=== PATIENT | male | born 1970 | race Caucasian/White ===

== ENCOUNTER 2017-01-30 08:20 | Emergency (ER) | payer OTHER ==
[~2017-01-30] VITALS: Ht 182.9 cm; Wt 165.1 kg
[~2017-01-30 08:20] MED LIST: ALBU8.5H8 INH; ALPR1TAB2 PO; AMLO10TA2 PO; BENA10TA2 PO; HYDR-3307 PO; METF500T4 PO; MORP30TA81 PO; OMEP20TA62 PO; TRIA50CA PO
[2017-01-30] MEDS ORDERED: POTA20TA14 PO (08:51)
[2017-01-30] MEDS ORDERED: METO25TA35 PO (08:51)
[2017-01-30] MEDS ORDERED: MORP30TA81 PO (08:51)
[2017-01-30] MEDS ORDERED: SODIUM CHLORIDE FLUSH 10ML SYR IVF ONE (09:00)
[2017-01-30] MEDS ORDERED: MAALOX/HYOSCYAMINE/LIDOCAINE 45 ML BTL PO ONE (09:00)
[2017-01-30] MEDS ORDERED: SODIUM CHLORIDE 0.9% 1,000ML IVBOLUS ONE ×2 (09:00→10:30)
[2017-01-30] MEDS ORDERED: ONDANSETRON 2MG/ML, 2ML IVPush ONE (09:00)
[2017-01-30 09:15] LABS: HEMOGLOBIN 14.9 g/dL (13.7-18.0); WHITE BLOOD COUNT 9.1 x10^3/uL (3.4-10)
[2017-01-30] MEDS ORDERED: MAALOX/HYOSCYAMINE/LIDOCAINE 45 ML BTL ONE (09:23)
[2017-01-30] MEDS ORDERED: ONDANSETRON 2MG/ML, 2ML ONE (09:23)
[2017-01-30 09:28] LABS: BLOOD UREA NITROGEN 13 mg/dL (7-18)
[2017-01-30 09:32] LABS: ASPARTATE AMINO TRANSFERASE 19 U/L (15-37)
[2017-01-30] MEDS ORDERED: OMNIPAQUE 350 MG/ML, 150 ML BOTTLE ONE (10:01)
[2017-01-30] MEDS ORDERED: KETOROLAC 30 MG/1 ML IVPush ONE (10:30)
[2017-01-30] MEDS ORDERED: KETOROLAC 30 MG/1 ML ONE (10:36)
[2017-01-30 11:55] LABS: IS PT STATUS REG ER OR PRE ER? YES
[2017-01-30 12:02] VITALS: BP 152/91
== END 2017-01-30 12:17 | disposition home or self-care (01) ==
LOC: ED 09:30
DX: K29.00 Acute gastritis without bleeding (principal); R42 Dizziness and giddiness; E11.9 Type 2 diabetes mellitus without complications; I10 Essential (primary) hypertension; J45.909 Unspecified asthma, uncomplicated; G89.29 Other chronic pain; K21.9 Gastro-esophageal reflux disease without esophagitis; Z87.891 Personal history of nicotine dependence; Z90.49 Acquired absence of other specified parts of digestive tract
CPT/HCPCS: 36415; 74177; 80053; 81003; 83690; 84484; 85025; 85610; 93005; 96361; 96374; 96375; 99285; J1885; J2405; J7030; Q9967

== ENCOUNTER 2017-02-08 08:23 | Emergency (ER) | payer OTHER ==
[~2017-02-08] VITALS: Ht 182.9 cm; Wt 163.7 kg
[~2017-02-08 08:23] MED LIST changes: +METO25TA35 PO; +POTA20TA14 PO
[2017-02-08] MEDS ORDERED: MECLIZINE CHEWABLE 25 MG TAB ONE (09:28)
[2017-02-08] MEDS ORDERED: ONDANSETRON 2MG/ML, 2ML ONE (09:28)
[2017-02-08] MEDS ORDERED: SODIUM CHLORIDE 0.9% 1,000ML IVBOLUS ONE (09:30)
[2017-02-08] MEDS ORDERED: MECLIZINE CHEWABLE 25 MG TAB PO ONE (09:30)
[2017-02-08] MEDS ORDERED: SODIUM CHLORIDE FLUSH 10ML SYR IVF ONE (09:30)
[2017-02-08] MEDS ORDERED: ONDANSETRON 2MG/ML, 2ML IVPush ONE (09:30)
[2017-02-08 09:40] LABS: HEMATOCRIT 46.2 % (39.2-51.8); HEMOGLOBIN 15.5 g/dL (13.7-18.0); WHITE BLOOD COUNT 10.1 x10^3/uL (3.4-10)
[2017-02-08 09:54] LABS: ASPARTATE AMINO TRANSFERASE 9 U/L (15-37); BLOOD UREA NITROGEN 8 mg/dL (7-18)
[2017-02-08 10:04] LABS: IS PT STATUS REG ER OR PRE ER? YES
[2017-02-08] MEDS ORDERED: BENAZEPRIL 5 MG TABLET PO ONE (11:32)
[2017-02-08 12:06] VITALS: BP 162/74
== END 2017-02-08 12:47 | disposition home or self-care (01) ==
LOC: ED 08:42
DX: B34.9 Viral infection, unspecified (principal); R42 Dizziness and giddiness
CPT/HCPCS: 36415; 71010; 80053; 83605; 84484; 85025; 85379; 93005; 96361; 96374; 99285; J2405; J7030